=== PATIENT | female | born 1990 | race Caucasian/White ===

== ENCOUNTER 2021-02-05 20:37 | Emergency (ER) | payer OTHER, SELFPAY ==
[~2021-02-05] VITALS: Ht 152.4 cm; Wt 80.7 kg
[2021-02-05 21:12] VITALS: BP 128/85
--- NOTE | 2021-02-05 21:22 | NUR ---
SWABS COLLECTED AND TAKEN TO LAB. PT TOLERATED WELL.
--- NOTE | 2021-02-05 22:50 | NUR ---
JACLYN PERFORMING ASSESSMENT.
[2021-02-05] MEDS ORDERED: PRON INH (23:50)
[2021-02-05] MEDS ORDERED: DOXY-487 PO (23:52)
[2021-02-06 00:15] VITALS: BP 124/85
--- NOTE | 2021-02-06 00:15 | NUR ---
Patient discharged with v/s stable. Written and verbal after care instructions given and explained. Patient alert, oriented and verbalized understanding of instructions. Ambulatory with steady gait. All questions addressed prior to discharge. ID band removed. Patient advised to follow up with PMD. Rx of DOXYCYCLINE HYCLATE AND PROVENTIL given. Patient educated on indication of medication including possible reaction and side effects. Opportunity to ask questions provided and answered.
== END 2021-02-06 00:15 | disposition home or self-care (01) ==
LOC: MED 20:37
DX: R06.02 Shortness of breath (principal); Z20.822 Contact with and (suspected) exposure to COVID-19; R07.89 Other chest pain; R51.9 Headache, unspecified; J45.909 Unspecified asthma, uncomplicated; E11.9 Type 2 diabetes mellitus without complications; Z79.899 Other long term (current) drug therapy; Z98.890 Other specified postprocedural states; Z88.0 Allergy status to penicillin; Z88.1 Allergy status to other antibiotic agents; Z88.5 Allergy status to narcotic agent; Z88.8 Allergy status to other drugs, medicaments and biological substances; Z91.010 Allergy to peanuts
CPT/HCPCS: 71045; 87426; 99284; U0003

== ENCOUNTER 2021-03-07 11:10 | Day surgery (SDC) | payer OTHER ==
[~2021-03-07] VITALS: Ht 154.9 cm; Wt 80.7 kg
[~2021-03-07 11:10] MED LIST: DOXY-487 PO; PRON INH
[2021-03-07] MEDS ORDERED: MIDAZOLAM 5 MG/5 ML VIAL ONE (12:53)
[2021-03-07] MEDS ORDERED: fentaNYL citrate 0.05 MG/ML VIAL ONE (13:01)
[2021-03-07] MEDS ORDERED: MIDAZOLAM 2 MG/2 ML VIAL IVP ONE (13:30)
== END 2021-03-07 14:20 | disposition home or self-care (01) ==
LOC: MDS 11:10 → MMU 11:11 → MDS 14:20
PROVIDERS: ATTEND Internal Medicine Gastroenterology
DX: R10.84 Generalized abdominal pain (principal); R11.0 Nausea; E66.9 Obesity, unspecified; E11.9 Type 2 diabetes mellitus without complications; F41.9 Anxiety disorder, unspecified; J45.909 Unspecified asthma, uncomplicated; F31.9 Bipolar disorder, unspecified; F43.10 Post-traumatic stress disorder, unspecified; Z68.33 Body mass index [BMI] 33.0-33.9, adult; Z88.0 Allergy status to penicillin; Z88.1 Allergy status to other antibiotic agents; Z91.010 Allergy to peanuts; Z88.8 Allergy status to other drugs, medicaments and biological substances; Z79.899 Other long term (current) drug therapy
CPT/HCPCS: 36415; 43239; 81025; 86677; J2250; J3010

== ENCOUNTER 2021-03-10 07:58 | Emergency (ER) | payer OTHER ==
[~2021-03-10] VITALS: Ht 154.9 cm; Wt 80.7 kg
[2021-03-10 08:05] VITALS: BP 138/79
--- NOTE | 2021-03-10 08:43 | NUR ---
30/F presents to ED with c/o nausea and abdominal pain x1 week. Patient states pain and nausea has continued with no relief, reports 0/10 pain right now, states receiving endoscopy here on Wednesday due to symptoms and still awaiting results. Patient denies vomiting, diarrhea or urinary symptoms. Patient states eating and drinking has been difficult due to the nausea, denies chest pain, sob, fever or chills. Reports taking Ibuprofen at home with no relief.
[2021-03-10] MEDS ORDERED: ONDANSETRON 4 MG ODT PO ONE (08:50)
[2021-03-10 09:48] LABS: BASOPHILS # (AUTO) 0.1 K/uL (0.00-0.22); BASOPHILS % (AUTO) 0.7 % (0.0-2.0); EOSINOPHILS % (AUTO) 0.3 % (0.0-4.0); HEMATOCRIT 35.8 % (36-48); HEMOGLOBIN 11.6 g/dL (12.0-16.0); LYMPHOCYTES # (AUTO) 1.8 K/uL (2.5-16.5); LYMPHOCYTES % (AUTO) 22.3 % (20.5-51.1); MEAN CORPUSCULAR HEMOGLOBIN 27 pg (27-31); MEAN CORPUSCULAR HGB CONC 33 g/dL (33-37); MEAN CORPUSCULAR VOLUME 83.9 fL (80-94); MONOCYTES # (AUTO) 0.3 K/uL (0.8-1.0); MONOCYTES % (AUTO) 4.3 % (1.7-9.3); NEUTROPHILS # (AUTO) 5.7 K/uL (1.8-7.7); NEUTROPHILS % (AUTO) 72.4 % (42.2-75.2); PLATELET COUNT (AUTO) 240 K/uL (140-450); RED BLOOD CELL COUNT(AUTO) 4.26 MIL/uL (4.20-5.40); RED CELL DISTRIBUTION WIDTH 15.6 % (11.6-13.7); WHITE BLOOD COUNT (AUTO) 7.9 K/uL (4.8-10.8)
[2021-03-10 10:03] LABS: ANION GAP 9.8 (8-16); CARBON DIOXIDE 28.1 mmol/L (21-32); CREATININE 0.6 mg/dL (0.6-1.3); POTASSIUM 3.9 mmol/L (3.5-5.1); TOTAL BILIRUBIN 0.4 mg/dL (0.0-1.0)
[2021-03-10] MEDS ORDERED: ONDA-24 SL (10:21)
[2021-03-10 10:28] VITALS: BP 138/79
== END 2021-03-10 10:29 | disposition home or self-care (01) ==
LOC: MED 07:58
DX: R11.0 Nausea (principal); R14.0 Abdominal distension (gaseous); R63.0 Anorexia; J45.909 Unspecified asthma, uncomplicated; E11.9 Type 2 diabetes mellitus without complications; Z88.0 Allergy status to penicillin; Z88.1 Allergy status to other antibiotic agents; Z88.5 Allergy status to narcotic agent; Z91.010 Allergy to peanuts
CPT/HCPCS: 36415; 80053; 81002; 81025; 83690; 85025; 99283; Q0162

== ENCOUNTER 2021-07-29 03:30 | Emergency (ER) | payer OTHER ==
[~2021-07-29] VITALS: Ht 152.4 cm; Wt 80.7 kg
[2021-07-29 03:30] VITALS: BP 128/75
[~2021-07-29 03:30] MED LIST changes: +ONDA-188 SL
--- NOTE | 2021-07-29 03:32 | NUR ---
PT OFFLOADED TO [facility]
--- NOTE | 2021-07-29 03:50 | NUR ---
SEEN AND EXAMINED BY JACLYN
[2021-07-29 05:15] VITALS: BP 128/75
--- NOTE | 2021-07-29 05:15 | NUR ---
patient was seen by ERMD no nursing interventions needed for patient.
--- NOTE | 2021-07-29 05:15 | NUR ---
Patient discharged with v/s stable. Written and verbal after care instructions given and explained. Patient verbalized understanding. Ambulatory with steady gait. All questions addressed prior to discharge. Advised to follow up with PMD.
--- NOTE | 2021-07-29 05:22 | NUR ---
provided bus pass for patient
== END 2021-07-29 05:15 | disposition home or self-care (01) ==
LOC: MED 03:30
DX: O26.891 Other specified pregnancy related conditions, first trimester (principal); J45.909 Unspecified asthma, uncomplicated; E11.9 Type 2 diabetes mellitus without complications; Z88.0 Allergy status to penicillin; Z88.1 Allergy status to other antibiotic agents; Z88.5 Allergy status to narcotic agent; Z88.8 Allergy status to other drugs, medicaments and biological substances; Z91.010 Allergy to peanuts; Z3A.01 Less than 8 weeks gestation of pregnancy
CPT/HCPCS: 81002; 81025; 99284

== ENCOUNTER 2022-03-07 22:16 | Emergency (ER) | payer OTHER ==
[~2022-03-07] VITALS: Ht 152.4 cm; Wt 77.1 kg
[2022-03-07 22:20] VITALS: BP 139/90
[2022-03-07] MEDS ORDERED: NACL 0.9% 1,000 ML IV ONE (22:45)
[2022-03-07] MEDS ORDERED: KETOROLAC 30 MG/ML VIAL IVP ONE (22:45)
[2022-03-07] MEDS ORDERED: ONDANSETRON 4 MG/2 ML VIAL IVP ONE (22:45)
[2022-03-07 23:00] LABS: BASOPHILS % (AUTO) 0.5 % (0.0-2.0); EOSINOPHILS % (AUTO) 0.5 % (0.0-4.0); HEMATOCRIT 36.9 % (36-48); HEMOGLOBIN 12.3 g/dL (12.0-16.0); LYMPHOCYTES # (AUTO) 2.3 K/uL (2.5-16.5); LYMPHOCYTES % (AUTO) 27.8 % (20.5-51.1); MEAN CORPUSCULAR HEMOGLOBIN 28 pg (27-31); MEAN CORPUSCULAR HGB CONC 33 g/dL (33-37); MEAN CORPUSCULAR VOLUME 83.1 fL (80-94); MONOCYTES # (AUTO) 0.5 K/uL (0.8-1.0); MONOCYTES % (AUTO) 6.5 % (1.7-9.3); NEUTROPHILS # (AUTO) 5.4 K/uL (1.8-7.7); NEUTROPHILS % (AUTO) 64.7 % (42.2-75.2); PLATELET COUNT (AUTO) 238 K/uL (140-450); RED BLOOD CELL COUNT(AUTO) 4.44 MIL/uL (4.20-5.40); RED CELL DISTRIBUTION WIDTH 15.6 % (11.6-13.7); WHITE BLOOD COUNT (AUTO) 8.4 K/uL (4.8-10.8)
[2022-03-07 23:15] LABS: ALBUMIN 2.9 g/dL (3.4-5.0); ANION GAP 13.2 (8-16); CARBON DIOXIDE 25.4 mmol/L (21-32); CREATININE 0.9 mg/dL (0.6-1.3); POTASSIUM 3.6 mmol/L (3.5-5.1); TOTAL BILIRUBIN 0.2 mg/dL (0.0-1.0)
[2022-03-08 00:25] LABS: APPEARANCE,URINE CLEAR (CLEAR); BILIRUBIN,URINE NEGATIVE (NEGATIVE); BLOOD, URINE NEGATIVE (NEGATIVE); COLOR,URINE YELLOW (YELLOW); LEUKOCYTE ESTERASE ,URINE NEGATIVE (NEGATIVE); NITRITE, URINE NEGATIVE (NEGATIVE); UGLUCOSE 3+ (NEGATIVE)
[2022-03-08 00:36] LABS: RBC,URINE 0-5 /HPF (0-5); WBC,URINE 0-5 /HPF (0-5)
== END 2022-03-08 00:55 | disposition home or self-care (01) ==
LOC: MED 22:16
DX: E11.65 Type 2 diabetes mellitus with hyperglycemia (principal); J45.909 Unspecified asthma, uncomplicated; Z86.69 Personal history of other diseases of the nervous system and sense organs; Z98.890 Other specified postprocedural states; Z79.899 Other long term (current) drug therapy; Z79.2 Long term (current) use of antibiotics; Z88.0 Allergy status to penicillin; Z88.1 Allergy status to other antibiotic agents; Z88.5 Allergy status to narcotic agent; Z88.8 Allergy status to other drugs, medicaments and biological substances; Z91.010 Allergy to peanuts; Z91.018 Allergy to other foods
CPT/HCPCS: 36415; 80053; 81001; 81025; 85025; 96361; 96374; 96375; 99284; J1885; J2405; J7030

== ENCOUNTER 2022-05-29 07:05 | Emergency (ER) | payer OTHER ==
[~2022-05-29] VITALS: Ht 149.9 cm; Wt 77.6 kg
--- NOTE | 2022-05-29 07:11 | NUR ---
TO BED 12 VIA [facility]
[2022-05-29 07:12] VITALS: BP 154/87
[2022-05-29] MEDS ORDERED: KETOROLAC 30 MG/ML VIAL IM ONE (07:25)
--- NOTE | 2022-05-29 07:30 | NUR ---
31 y/o female biba from home, c/o abd pain to suprapubic region for "few days" with nausea and vomiting that started yesterday. pt states she has been having decreased appetite. a&ox4, ambulates with steady gait. ermd made aware of pt. pmh: cardiomegaly, seizures, asthma, diabetes allergy: penicillin, amoxicillin, azithromycin, hydrocodone, iodine, [place], wheat
[2022-05-29 07:35] LABS: BASOPHILS # (AUTO) 0.1 K/uL (0.00-0.22); EOSINOPHILS % (AUTO) 0.2 % (0.0-4.0); HEMATOCRIT 39.8 % (36-48); HEMOGLOBIN 13.2 g/dL (12.0-16.0); LYMPHOCYTES # (AUTO) 2.4 K/uL (2.5-16.5); LYMPHOCYTES % (AUTO) 26.2 % (20.5-51.1); MEAN CORPUSCULAR HEMOGLOBIN 28 pg (27-31); MEAN CORPUSCULAR HGB CONC 33 g/dL (33-37); MEAN CORPUSCULAR VOLUME 84.4 fL (80-94); MONOCYTES # (AUTO) 0.4 K/uL (0.8-1.0); MONOCYTES % (AUTO) 4.4 % (1.7-9.3); NEUTROPHILS # (AUTO) 6.3 K/uL (1.8-7.7); NEUTROPHILS % (AUTO) 68.2 % (42.2-75.2); PLATELET COUNT (AUTO) 255 K/uL (140-450); RED BLOOD CELL COUNT(AUTO) 4.71 MIL/uL (4.20-5.40); RED CELL DISTRIBUTION WIDTH 14.2 % (11.6-13.7); WHITE BLOOD COUNT (AUTO) 9.2 K/uL (4.8-10.8)
[2022-05-29 08:16] LABS: ALBUMIN 3.2 g/dL (3.4-5.0); ANION GAP 9.2 (8-16); CARBON DIOXIDE 29.8 mmol/L (21-32); CREATININE 0.6 mg/dL (0.6-1.3); TOTAL BILIRUBIN 0.4 mg/dL (0.0-1.0)
[2022-05-29] MEDS ORDERED: DICY10CA14 PO (10:38)
[2022-05-29 10:45] VITALS: BP 154/87
--- NOTE | 2022-05-29 10:45 | NUR ---
Patient discharged with v/s stable. Written and verbal after care instructions given and explained. Patient alert, oriented and verbalized understanding of instructions. Ambulatory with steady gait. All questions addressed prior to discharge. ID band removed. Patient advised to follow up with PMD. Rx of dicyclomine (sent) given. Patient educated on indication of medication including possible reaction and side effects. Opportunity to ask questions provided and answered.
== END 2022-05-29 10:45 | disposition home or self-care (01) ==
LOC: MED 07:05
DX: R10.30 Lower abdominal pain, unspecified (principal); R11.2 Nausea with vomiting, unspecified; J45.909 Unspecified asthma, uncomplicated; E11.9 Type 2 diabetes mellitus without complications; Z86.69 Personal history of other diseases of the nervous system and sense organs; Z79.899 Other long term (current) drug therapy; Z79.2 Long term (current) use of antibiotics; Z88.0 Allergy status to penicillin; Z88.1 Allergy status to other antibiotic agents; Z88.5 Allergy status to narcotic agent; Z88.8 Allergy status to other drugs, medicaments and biological substances; Z91.010 Allergy to peanuts; Z91.018 Allergy to other foods
CPT/HCPCS: 36415; 74018; 80053; 81002; 81025; 82150; 83690; 85025; 96372; 99284; J1885